=== PATIENT | female | born 1955 | race Caucasian/White ===

== ENCOUNTER 2017-07-14 09:58 | Day surgery (SDC) | payer OTHER ==
[~2017-07-14 09:58] MED LIST: Acetaminophen TAB* 325 MG PO ONE; Buffered Lidocaine 0.9% SYRIN* 5 ML/SYR SYRINGE INTRADERM ONE; Dexamethasone IV* 4 MG/ML 1 ML (4 MG) IV SLOW PU ONE; Famotidine IV* 10 MG/ML 2 ML (20 mg) IV ONE
[2017-07-14] MEDS ORDERED: Acetaminophen TAB* 325 MG ONE (10:22)
[2017-07-14] MEDS ORDERED: Famotidine IV* 10 MG/ML 2 ML (20 mg) ONE (10:23)
[2017-07-14] MEDS ORDERED: ceFAZolin 2 GM PREMIX (*) 2 GM/50 ML BAG IVPB ONE (10:23)
[2017-07-14] MEDS ORDERED: Dexamethasone IV* 4 MG/ML 1 ML (4 MG) ONE ×3 (10:23→12:23)
[2017-07-14] MEDS ORDERED: PROCHLORPERAZINE INJ 5 MG/ML 2 ML VIAL IV PRN (11:00)
[2017-07-14] MEDS ORDERED: Ondansetron INJ* 2 MG/ML VIAL IV PRN (11:00)
[2017-07-14] MEDS ORDERED: Scopolamine 1.5 mg* PATCH TRANSDERM PRN (11:00)
[2017-07-14] MEDS ORDERED: oxyCODONE/Acetamin 5/325 MG* TAB PO PRN (11:00)
[2017-07-14] MEDS ORDERED: HYDROcodone/ACETAMIN 5-325 MG* 1 TAB PO PRN (11:00)
[2017-07-14] MEDS ORDERED: Ibuprofen TAB* 600 MG PO PRN (11:00)
[2017-07-14] MEDS ORDERED: oxyCODONE TAB* 5 MG TAB PO PRN (11:00)
[2017-07-14] MEDS ORDERED: DiMENhydriNATE IV* 50 MG/ML VIAL IV PUSH PRN (11:00)
[2017-07-14] MEDS ORDERED: HYDROmorphone INJ* 1 MG/ML CARPUJECT SYRINGE IV PRN (11:00)
[2017-07-14] MEDS ORDERED: fentaNYL* 50 MCG/ML 2 ML VIAL (100 MCG VIAL) IV PRN (11:00)
[2017-07-14] MEDS ORDERED: Ondansetron ODT TAB* 4 MG PO PRN (11:00)
[2017-07-14] MEDS ORDERED: Propofol* 10 MG/ML 20 ML BTL IV PUSH ONE (11:23)
[2017-07-14] MEDS ORDERED: Midazolam* 1 MG/ML 2 ML VIAL (2 MG) ONE (11:23)
[2017-07-14] MEDS ORDERED: fentaNYL* 50 MCG/ML 2 ML VIAL (100 MCG VIAL) ONE (11:23)
[2017-07-14] MEDS ORDERED: Lidocaine 2% PF * 5 ML VIAL ONE ×2 (11:23→11:38)
[2017-07-14] MEDS ORDERED: Propofol* 500 MG/50 ML BTL ONE ×2 (11:47)
[2017-07-14] MEDS ORDERED: Bupivacaine 0.5% SDV PF* 30 ML VIAL ONE (12:03)
[2017-07-14] MEDS ORDERED: Lidocaine 1% INJ* 10 MG/ML 30 ML SDV ONE (12:03)
[2017-07-14 13:30] VITALS: BP 100/46
--- NOTE | 2017-07-14 21:54 | OP ---
DATE OF OPERATION: 07/14/17 - FORMERLY [facility] DATE OF : 53 SURGEON: Kulwindre Sanchez DPM JEWELRY ESTIMATOR: None. ANESTHESIOLOGIST: Marie Person MD ANESTHESIA: MAC with local. PRE-OP DIAGNOSES: 1. Painful screw fixation, first metatarsal right foot. 2. Adhesions, right great toe joint. POST-OP DIAGNOSES: 1. Painful screw fixation, first metatarsal right foot. 2. Adhesions, right great toe joint. OPERATIVE PROCEDURE: 1. Removal of screw from first metatarsal on the right foot. 2. Manipulation under anesthesia of the first metatarsophalangeal joint of the right foot. HEMOSTASIS: Pneumatic ankle tourniquet. ESTIMATED BLOOD LOSS: Less than 3 cc. INDICATIONS: The patient with prior right first metatarsal osteotomy which has healed well. She has some suspected screw irritation and elects to have this removed at this time. She also has some decreased plantarflexion and adhesions in the right great toe joint. The patient elected to try and reduce these adhesions if possible. DESCRIPTION OF PROCEDURE: The patient was brought to the operating room and placed on the operating room table in a supine position. The patient was then prepped and draped in the usual fashion. Screw head was localized with a mini C -arm. The right foot was then exsanguinated with an Esmarch bandage and pneumatic ankle tourniquet was inflated to 250 mmHg above a well-padded right ankle. Local blocks were performed with 1:1 mixture of 1% lidocaine plain and 0.5% Marcaine plain. A small linear incision was made using the previous surgical incision where the screw head was localized. This was deepened through subcutaneous tissue towards the deep fascia with care being taken to retract the neurovascular structures. The deep fascia was incised to allow for exposure of the screw head. Handheld screw haul driver was used to retrograde the screw out which was found to be completely intact, no signs of breakage or shearing. There is no evidence of any significant bony hypertrophy in the area. The area was flushed with copious amounts of normal sterile saline and the screw was sent off the field. The surgical site was flushed with copious amounts of normal sterile saline, subcutaneous closure with Vicryl, and the skin was closed with nylon. Next, 8 mg of dexamethasone phosphate was infiltrated into the right great toe joint and with distraction and stress manipulation the right great toe joint was dorsiflexed and particularly plantarflexed to help breakup adhesions. There was noted to be improved range of motion. The incision was then dressed with Xeroform gauze and a light dressing with 4x4 gauze, Wilfredo, and light Coban wrap. The pneumatic ankle tourniquet was deflated about the right ankle and a prompt hyperemic response was noted in all 5 digits of the patient's right foot. Having appeared to tolerated the procedure and anesthesia well, the patient was transported via cart from the operating room to recovery in satisfactory condition with capillary refill less than 3 seconds to all digits of the right foot. [id number] #: [id number] MTDD
[2017-07-17] MEDS ORDERED: Scopolamine PATCH Remove* 1 NOTE MISC PATCH OFF ONE (11:01)
== END 2017-07-14 13:38 | disposition home or self-care (01) ==
LOC: OREAST 09:58
PROVIDERS: ATTEND Podiatrist Foot Surgery
DX: T84.84XA Pain due to internal orthopedic prosthetic devices, implants and grafts, initial encounter (principal); Y83.1 Surgical operation with implant of artificial internal device as the cause of abnormal reaction of the patient, or of later complication, without mention of misadventure at the time of the procedure; M24.674 Ankylosis, right foot; M79.671 Pain in right foot; B02.9 Zoster without complications
CPT/HCPCS: 88300; A9270-GY; J0690; J1100; J2250; J2704; J3010